=== PATIENT | male | born 1990 | race Caucasian/White ===

== ENCOUNTER → 2021-09-26 08:57 | Outpatient (BNVA) | payer MEDICAID, SELFPAY | PROVIDERS: Visit Provider Nurse Practitioner Family | DX: Z20.822 Contact with and (suspected) exposure to COVID-19 (principal); R05.9 Cough, unspecified | CPT/HCPCS: 87486; 87581; 87633 ==

== ENCOUNTER → 2023-01-26 15:33 | Outpatient (BNVA) | payer MEDICAID, SELFPAY | PROVIDERS: PCP Family Medicine; Visit Provider Registered Nurse Neonatal Intensive Care | DX: J06.9 Acute upper respiratory infection, unspecified (principal) | CPT/HCPCS: 87426 ==

== ENCOUNTER → 2023-01-31 11:28 | Outpatient (BNVA) | payer MEDICAID, SELFPAY | PROVIDERS: PCP Family Medicine; Visit Provider Nurse Practitioner Family | DX: J02.9 Acute pharyngitis, unspecified (principal) | CPT/HCPCS: 87880 ==

== ENCOUNTER 2023-05-01 13:32 | Emergency (ER) | payer OTHER, MEDICAID, SELFPAY ==
[2023-05-01 13:33] VITALS: BP 161/99; PULSE 82; RESP 16; O2SAT 99
--- NOTE | 2023-05-01 13:33 | XRR_ITS ---
PROCEDURE INFORMATION: Exam: XR Right Ankle Exam date and time: 05/01/2023 1:46 PM Age: 33 years old Clinical indication: Injury or trauma; Fall; Blunt trauma; Ankle; Right TECHNIQUE: Imaging protocol: Radiologic exam of the right ankle. Views: 3 or more views. COMPARISON: No relevant prior studies available. FINDINGS: Bones/joints: A nondisplaced transverse fracture seen involving the distal lateral malleolus. No other fracture identified. Ankle joint appears maintained. Soft tissues: Soft tissue swelling is seen. XR/XR ankle RT min 3V* [id number] IMPRESSION: Nondisplaced transverse fracture of the distal lateral malleolus of the right ankle.
--- NOTE | 2023-05-01 14:54 | ED_ITS ---
HPI - Extremity Problem General: Chief complaint: Extremity Injury, Lower Stated complaint: RIGHT ANKLE PAIN Time Seen by Provider: 05/01/23 13:33 Source: patient Mode of arrival: EMS History of Present Illness: 33-year-old male was working for [employer] he was walking on uneven ground twisted his right ankle his pain and swelling on the right lateral malleolus did not fall completely down not hit his head, no other injuries. MD Complaint: joint swelling and joint pain Onset (ago): minute(s) Location: right and lower extremity (Ankle) Review of Systems Musc: Reports: joint pain and joint swelling PFS ED PFSH: Medical History Laceration of finger of left hand Social History Smoking and tobacco status: never smoked Second hand smoke exposure: No Physical Exam Const: GENERAL APPEARANCE: cooperative and comfortable OR IENTATION/CONSCIOUSNESS: Yes awake, Yes oriented to person, Yes oriented to place and Yes oriented to time HENMT: COMMON NORMALS: normocephalic, atraumatic and hearing grossly normal bilaterally HEAD & SCALP: normocephalic and atraumatic Resp: COMMON NORMALS: normal respiratory effort, No retractions, No use of accessory muscles and clear to auscultation bilaterally AUSCULTATION: clear to auscultation bilaterally Cardio: COMMON NORMALS: regular rate, regular rhythm and No murmurs present (Cardio) RATE: regular rate RHYTHM: regular rhythm GI: COMMON NORMALS: Soft to palpation and No hepatosplenomegaly present AUSCULTATION: Yes normoactive bowel sounds PALPATION: Yes Soft to palpation, No Tenderness to palpation present (GI), No Guarding due to palpation present (GI) and Yes No hepatosplenomegaly present Extremity: OTHER: Tender swollen area on the right lateral malleolus neurovascularly intact dorsum plantarflexion 5 of 5 dorsalis pedis pulse normal. Neuro: SENSORIUM/ORIENTATION: Yes oriented to person, Yes oriented to place and Yes oriented to time Skin: COMMON NORMALS: no rashes or lesions noted GENERAL SKIN EXAM: no rashes or lesions noted Course Vital Signs: Vital signs: Vital Signs Pulse Rate 82 05/01/23 13:33 Respiratory Rate 16 08/19/23 13:33 Blood Pressure 161/99 08/19/23 13:33 Pulse Oximetry 99 05/01/23 13:33 Oxygen Delivery Me thod Room Air 05/01/23 13:33 MDM - Extremity (Nontraumatic) Medical Decision Making Nondisplaced lateral malleolus fracture splint nonweightbearing crutches pain medications given follow-up with Ortho Lab Data Radiology Impressions Ankle X-Ray 05/01/23 13:33 IMPRESSION: Nondisplaced transverse fracture of the distal lateral malleolus of the right ankle. Discharge Plan Discharge Patient Disposition: Home Clinical Impression: Ankle fracture, lateral malleolus, closed Condition: Stable Prescriptions: New hydrocodone-acetaminophen 5-325 mg tablet 1 tab PO Q6H PRN (Reason: pain) Qty: 10 0RF No Action ibuprofen 800 mg tablet 800 mg PO Q8H PRN (Reason: Pain) amoxicillin-pot clavulanate 875-125 mg tablet 1 tab PO Q12H Rx Instructions: FOR 7 DAYS (RX FILLED 04/29/23) Discharge Orders: Discharge ED (Routine); Ordered 05/01/23 Ordered By: Ovi Wilkins Discharge Diet: Usual diet Discharge Activity: Limit activity as instructed Patient Instructions: Opioid Safety, Pain Management Coding Level of Care Code 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
[2023-05-01 15:03] VITALS: BP 161/99; PULSE 82; RESP 16; O2SAT 99
--- NOTE | 2023-05-03 08:12 | DCPLANNER ---
Addendum entered by Maty Bryant 05/12/23 13:28: Patient did attend follow up appointment scheduled with ortho. Original Note: teller manager had message to schedule a follow up appointment for patient with ortho. teller manager sent patients information to the front office staff at ortho. Patients information will be printed and reviewed. Clinic will call patient with appointment information.
--- NOTE | 2023-05-03 12:08 | DCPLANNER ---
ict development manager was triggered to call patient due to no primary care physician - patient sees Dr. Velazquez.
== END 2023-05-01 15:06 | disposition home or self-care (01) ==
PROVIDERS: Emergency Provider Family Medicine; PCP Family Medicine
DX: S82.64XA Nondisplaced fracture of lateral malleolus of right fibula, initial encounter for closed fracture (principal); Y93.01 Activity, walking, marching and hiking; Y99.0 Civilian activity done for income or pay
CPT/HCPCS: 29515; 73610; 99283; E0114

== ENCOUNTER 2023-05-03 14:48 | Outpatient (CLI) | payer OTHER, MEDICAID, SELFPAY | END 2023-05-03 14:49 | disposition home or self-care (01) | LOC: SPT 14:48 | PROVIDERS: Visit Provider Podiatrist Foot & Ankle Surgery | DX: Z46.89 Encounter for fitting and adjustment of other specified devices (principal); S82.831D Other fracture of upper and lower end of right fibula, subsequent encounter for closed fracture with routine healing; X58.XXXD Exposure to other specified factors, subsequent encounter | CPT/HCPCS: 97760; L4361 ==

== ENCOUNTER → 2023-05-19 15:28 | Outpatient (BNVA) | payer OTHER, MEDICAID, SELFPAY | PROVIDERS: Visit Provider Podiatrist Foot & Ankle Surgery | DX: S82.831D Other fracture of upper and lower end of right fibula, subsequent encounter for closed fracture with routine healing; X58.XXXD Exposure to other specified factors, subsequent encounter | CPT/HCPCS: 73610 ==

== ENCOUNTER → 2023-06-09 10:15 | Outpatient (BNVA) | payer OTHER, SELFPAY | PROVIDERS: Visit Provider Podiatrist Foot & Ankle Surgery | DX: S82.831A Other fracture of upper and lower end of right fibula, initial encounter for closed fracture (principal); X58.XXXA Exposure to other specified factors, initial encounter | CPT/HCPCS: 73610 ==

== ENCOUNTER 2023-06-09 11:09 | Outpatient (CLI) | payer OTHER, SELFPAY | END 2023-06-09 11:10 | disposition home or self-care (01) | LOC: SPT 11:12 | PROVIDERS: Visit Provider Podiatrist Foot & Ankle Surgery | DX: Z46.89 Encounter for fitting and adjustment of other specified devices (principal); S82.831D Other fracture of upper and lower end of right fibula, subsequent encounter for closed fracture with routine healing; X58.XXXD Exposure to other specified factors, subsequent encounter | CPT/HCPCS: 97760; L1902 ==

== ENCOUNTER → 2023-07-06 13:50 | Outpatient (BNVA) | payer MEDICAID, SELFPAY | PROVIDERS: Visit Provider Podiatrist Foot & Ankle Surgery | DX: S82.831D Other fracture of upper and lower end of right fibula, subsequent encounter for closed fracture with routine healing; X58.XXXD Exposure to other specified factors, subsequent encounter | CPT/HCPCS: 73610 ==

== ENCOUNTER → 2023-08-04 10:05 | Outpatient (BNVA) | payer MEDICAID, SELFPAY | PROVIDERS: Visit Provider Podiatrist Foot & Ankle Surgery | DX: S82.831D Other fracture of upper and lower end of right fibula, subsequent encounter for closed fracture with routine healing; X58.XXXD Exposure to other specified factors, subsequent encounter | CPT/HCPCS: 73610 ==

== ENCOUNTER 2024-05-14 14:56 | Emergency (ER) | payer MEDICAID, SELFPAY ==
--- NOTE | 2024-05-14 15:05 | XRR_ITS ---
PROCEDURE INFORMATION: Exam: XR Chest Exam date and time: 05/14/2024 3:19 PM Age: 34 years old Clinical indication: Cough TECHNIQUE: Imaging protocol: Radiologic exam of the chest. Views: 1 view. COMPARISON: CR XR shoulder RT min 2V* [id number] 05/01/2021 10:29 AM FINDINGS: Lungs: Unremarkable. No infiltrate or consolidation. Pleural spaces: Unremarkable. No pleural effusion. No pneumothorax. Heart/Mediastinum: Unremarkable. No cardiomegaly. Bones/joints: Visualized osseous structures show no acute abnormality. XR/XR chest 1V portable [id number] IMPRESSION: No acute cardiopulmonary abnormality.
[2024-05-14 16:23] VITALS: BP 139/83; PULSE 69; RESP 18; TEMP 36.7; O2SAT 97; BMI 32.1
--- NOTE | 2024-05-14 16:52 | W.ED.URI ---
HPI - URI/Sore Throat General: Chief Complaint: Upper Respiratory Infection Stated Complaint: couhg, congestion Time Seen by Provider: 05/14/24 16:35 History of Present Illness: 34-year-old male patient comes in today for complaints of persistent cough. Patient is been ill for 2 to 3 weeks. Patient recently been started on some azithromycin and prednisone 2 days ago but had to call out of work today due to the cough. Patient appears nontoxic. Patient appears in no pain. Patient denies any history of asthma or chronic lung disease. Related Data Home Medications Medication Instructions Recorded Confirmed ibuprofen 800 mg tablet 800 mg PO Q8H PRN Pain 04/02/23 10/31/23 Previous Rx's Medication Instructions Recorded ASO #1 ea 06/09/23 ondansetron 8 mg disintegrating 8 mg PO Q8H PRN nausea and 10/31/23 tablet vomiting 5 days #15 tabs benzonatate 100 mg capsule 100 mg PO TID PRN cough #20 caps 05/14/24 Allergies Allergy/AdvReac Type Severity Reaction Status Date / Time No Known Allergies Allergy Verified 05/14/24 16:29 Review of Systems General: Reports: 10 or more systems reviewed and unremarkable except in HPI and below PFSH ED PFSH: Medical History Psychiatric care Laceration of finger of left hand Social History Smoking and tobacco/nicotine status: never used tobacco/nicotine Second hand smoke exposure: No Physical Exam Const: COMMON NORMALS: alert HENMT: COMMON NORMALS: normocephalic HEAD & SCALP: normocephalic THROAT: posterior oropharynx normal Resp: COMMON NORMALS: normal respiratory effort AUSCULTATION: wheezes (Occasional inspiratory and expiratory wheeze) Cardio: COMMON NORMALS: regular rate RATE: regular rate Back/Pelvis: COMMON NORMALS: thoracic and lumbar spine normal to inspection Extremity: COMMON NORMALS: no pedal edema Neuro: SENSORIUM/ORIENTATION: Yes alert Skin: COMMON NORMALS: no rashes or lesions noted GENERAL SKIN EXAM: no rashes or lesions noted Course Vital Signs: Vital signs: Vital Signs Temperature 98.0 F 05/14/24 17:04 Pulse Rate 72 05/14/24 17:04 Respiratory Rate 16 05/14/24 17:04 Blood Pressure 136/84 05/14/24 17:04 Pulse Oximetry 98 05/14/24 17:04 Oxygen Delivery Me thod Room Air 05/14/24 16:23 MDM - URI/Sore Throat Medical Decision Making 34-year-old male patient comes in today for complaints of cough for 2 to 3 weeks. On exam patient appears nontoxic. Patient appears no acute distress. Respirations are even with occasional inspiratory and expiratory wheeze. Wheezes clear with cough. Differential diagnosis includes but not limited to bronchitis, postviral cough, pneumonia. Chest x-ray was normal. COVID-19 test was normal. Reviewed exam with patient recommended Tessalon Perles to help with his cough. Encourage fluids rest and follow-up with primary care. Patient reported understanding agreed to plan. Lab Data Radiology Impressions Chest X-Ray 05/14/24 15:05 IMPRESSION: No acute cardiopulmonary abnormality. Laboratory Results SARS-CoV-2 Ag (Rapid) Negative (Negative) 05/14/24 16:36 All radiology interpretation(s) finalized by discharge Discharge Plan Discharge Patient Disposition: Home Clinical Impression: Bronchitis Condition: Stable Prescriptions: New benzonatate 100 mg capsule 100 mg PO TID PRN (Reason: cough) Qty: 20 0RF No Action ibuprofen 800 mg tablet 800 mg PO Q8H PRN (Reason: Pain) (DME) ASO See Rx Instructions .Route .MEDSUPPLY Qty: 1 0RF Rx Instructions: As directed ondansetron 8 mg tablet,disintegrating 8 mg PO Q8H PRN (Reason: nausea and vomiting) 5 Days Qty: 15 0RF Discharge Orders: Discharge ED (Routine); Ordered 05/14/24 Ordered By: Lawrence Cunningham Discharge Diet: Usual diet Discharge Activity: Increase activity as tolerated Patient Instructions: Acute Bronchitis (ED) Activity Restrictions/Additional Instructions: Drink plenty water and fluids. Use benzonatate Perles to help with cough. Drink plenty of water. Continue with routine medications as prescribed. Follow-up with primary care for further instructions. 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
[2024-05-14 17:04] VITALS: BP 136/84; PULSE 72; RESP 16; TEMP 36.7; O2SAT 98
[2024-05-14 17:04] LABS: SARS Covid-2 Antigen Negative (Negative)
== END 2024-05-14 17:05 | disposition home or self-care (01) ==
PROVIDERS: Emergency Medicine; Emergency Provider Nurse Practitioner Family
DX: J40 Bronchitis, not specified as acute or chronic (principal); Z11.52 Encounter for screening for COVID-19
CPT/HCPCS: 71045; 87426; 99284